=== PATIENT | male | born 1940 | race Caucasian/White ===

== ENCOUNTER 2022-06-13 10:43 | Outpatient (CLI) | payer MEDICARE | END 2022-06-13 10:44 | disposition home or self-care (01) | LOC: CSHLAB 10:43 | PROVIDERS: ATTEND Otolaryngology Plastic Surgery within the Head & Neck | DX: Z20.822 Contact with and (suspected) exposure to COVID-19 (principal); R13.12 Dysphagia, oropharyngeal phase; R63.30 Feeding difficulties, unspecified | CPT/HCPCS: 87811 ==

== ENCOUNTER 2022-06-15 09:53 | Outpatient (CLI) | payer MEDICARE | END 2022-06-15 09:54 | disposition home or self-care (01) | LOC: CSHRAD 09:53 | PROVIDERS: ATTEND Otolaryngology Plastic Surgery within the Head & Neck | DX: R13.12 Dysphagia, oropharyngeal phase (principal); R63.30 Feeding difficulties, unspecified | CPT/HCPCS: 74230 ==

== ENCOUNTER 2023-07-25 00:17 | Emergency (ER) | payer MEDICARE ==
[2023-07-25 01:57] LABS: #Eosinphils 0.3 10x3/uL (0.0-0.5); #Monocytes 0.8 10x3/uL (0.0-1.1); %Basophils 0.5 % (0.0-2.0); %Eosinophils 3.7 % (0.0-6.0); %Lymphocytes 19.6 % (18.0-47.0); %Monocytes 10.8 % (0.0-10.0); Hematocrit 40.6 % (38.8-50.0); Mean Corpuscular Hemoglobin 28.3 pg (27.0-33.0); Mean Corpuscular Volume 88.3 fl (81.2-95.1); Platelet Count 155 10x3/uL (150-450); White Blood Cell (WBC) Count 7.7 10x3/uL (3.5-10.5)
[2023-07-25 02:17] LABS: ALT (SGPT) 17 U/L (8-55); AST (SGOT) 23 U/L (5-34); Albumin 4.5 g/dL (3.4-4.8); Alkaline Phosphatase 47 U/L (40-110); Anion Gap 16 mmol/L (10-20); BUN (Urea Nitrogen) 28 mg/dL (8.4-25.7); Bilirubin, Total 0.4 mg/dL (0.2-1.2); Calc. Creatinine Clearance 0 mL/min (70-130); Calcium 8.8 mg/dL (7.8-10.44); Carbon Dioxide 18 mmol/L (23-31); Chloride 112 mmol/L (98-107); Estimated GFR 66; Globulin 2.4 g/dL (2.4-3.5); Glucose 106 mg/dL (83-110); Potassium 4.1 mmol/L (3.5-5.1); Protein, Total 6.9 g/dL (5.8-8.1); Sodium 142 mmol/L (136-145)
[2023-07-25 02:24] LABS: Troponin I Less than 0.010 ng/mL (< 0.028)
[2023-07-25] MEDS ORDERED: cloNIDine 0.1 MG TAB ONE ×3 (02:53→05:04)
== END 2023-07-25 05:06 | disposition home or self-care (01) ==
LOC: CSHERS 00:17
DX: R07.89 Other chest pain (principal); I25.10 Atherosclerotic heart disease of native coronary artery without angina pectoris; I10 Essential (primary) hypertension
CPT/HCPCS: 71045; 80053; 84484; 85025; 93005